=== PATIENT | female | born 1995 | race Caucasian/White ===

== ENCOUNTER 2021-11-01 20:42 | Emergency (ER) | payer BC, OTHER ==
[2021-11-01] MEDS ORDERED: Sodium Chloride 0.9% 1000 ML 1,000 ML IV STA (21:55)
[2021-11-01] MEDS ORDERED: Zofran 4 MG/2 ML VIAL IV ONE (21:56)
--- NOTE | 2021-11-01 22:06 | ERPHSYRPT ---
- History of Present Illness Source: patient Exam Limitations: no limitations Patient Subjective Stated Complaint: "I have COVID and now I'm vomiting and having a lot of diarrhea." Triage Nursing Assessment: Patient reported that she was COVID positive on 10/25/21. Since then she has faired well despite respiratory symptoms. This morning 11/01/21 she develope nausea/vomiting/diarrhea roughly 6 episodes throghout the day. She denied chest pain or worsening shortness of breath. She reported a mild headache that began after episodes of vomiting. Symmetrical chest expansion. heart tones S1/S2 RRR. Lungs vesicular with adequate airflow and no adventitious lung sounds. [place] obese non-distended, non-surgical, and without peritoneal signs. Bowel sounds present in all quadrants. No voluntary/involuntary guarding. No rebound. Physician History: 26 yo wf w +CV19 test on 10/25/21 presents w N/V x 2-3 days. Pt has had GUERRERO/cough/coryza/myalgis/arthralgias. Timing/Duration: other (10/25/21) Activities at Onset: rest Severity of Dyspnea-Max: mild Severity of Dyspnea-Current: mild Possible Cause: no prior episodes Modifying Factors: Improves With: coughing Associated Symptoms: cough, fever, loss of appetite Allergies/Adverse Reactions: No Known Drug Allergies Allergy (Unverified 11/01/21 20:55) Home Medications: Escitalopram Oxalate 20 mg PO DAILY 11/01/21 [History] Metformin HCl 500 mg [Glucophage 500 MG] 1,000 mg PO DAILY 11/01/21 [History] Hx Tetanus, Diphtheria Vaccination/Date Given: Yes Hx Influenza Vaccination/Date Given: Yes Travel Risk - International Travel Have you traveled outside of the country in past 3 weeks: No - Coronavirus Screening Are you exhibiting any of the following symptoms?: No Close contact with a COVID-19 positive Pt in past 14-21 Days: No - Vaccine Status Have you recieved a Covid-19 vaccination: No - Review of Systems Constitutional: No Symptoms, Fever, Chills Eyes: No Symptoms Ears, Nose, & Throat: No Symptoms, Nose Pain, Nose Congestion, Nose Discharge Respiratory: No Symptoms, Cough, Dyspnea Cardiac: No Symptoms Abdominal/Gastrointestinal: Nausea, Vomiting, Diarrhea Genitourinary Symptoms: No Symptoms Musculoskeletal: No Symptoms, Arthralgias, Myalgias Skin: No Symptoms Neurological: No Symptoms, Headache Psychological: No Symptoms Endocrine: No Symptoms Hematologic/Lymphatic: No Symptoms Immunological/Allergic: No Symptoms - Past Medical History Pertinent Past Medical History: Yes Neurological History: No Pertinent History ENT History: No Pertinent History Cardiac History: No Pertinent History Respiratory History: No Pertinent History Endocrine Medical History: No Pertinent History Musculoskeletal History: No Pertinent History GI Medical History: No Pertinent History History: No Pertinent History Psycho-Social History: Anxiety, Depression Female Reproductive Disorders: Other Other Medical History: PCOS - Past Surgical History Past Surgical History: Yes Cardiac: No Pertinent History Respiratory: No Pertinent History Gastrointestinal: Appendectomy, Cholecystectomy Genitourinary: No Pertinent History Musculoskeletal: No Pertinent History Female Surgical History: No Pertinent History - Social History Smoking Status: Never smoker Exposure to second hand smoke: No Drug Use: none Patient Lives Alone: No Significant Family History: no pertinent family hx - Female History Hx Last Menstrual Period: 10/06/21 Hx Now: No - Nursing Vital Signs Nursing Vital Signs: Initial Vital Signs Temperature 98.7 F 11/01/21 20:44 Pulse Rate 67 11/01/21 20:44 Respiratory Rate 22 11/01/21 20:44 Blood Pressure 122/65 11/01/21 20:44 O2 Sat by Pulse Oximetry 98 11/01/21 20:44 Pain Scale Pain Intensity 4 WNL - Physical Exam General Appearance: no apparent distress Eye Exam: PERRL/EOMI, eyes nml inspection Ears, Nose, Throat Exam: hearing grossly normal, normal ENT inspection, normal pharynx Neck Exam: normal inspection, non-tender, supple, full range of motion, No Brudzinski, No Kernig's, No meningismus, No carotid bruit Respiratory Exam: normal breath sounds, lungs clear, airway intact Cardiovascular/Chest Exam: normal heart sounds, regular rate/rhythm, normal peripheral pulses, No murmur, No edema Abdominal/Gastrointestinal Exam: soft, normal bowel sounds, No tenderness Extremity Exam: non-tender, normal range of motion, normal inspection, normal capillary refill Peripheral Pulses Exam: carotid (R): 2+, carotid (L): 2+ Neurologic Exam: alert, oriented x 3, cooperative, rn recovery II-XII nml as tested, normal mood/affect, nml cerebellar function, nml station & gait, sensation nml, No motor deficits, No sensory deficit Skin Exam: normal color, warm, dry Lymphatic Exam: inguinal node tender (L), No adenopathy SpO2 Interpretation: normal SpO2: 98 O2 Delivery: Room Air - Course Nursing assessment & vital signs reviewed: Yes Ordered Tests: Active Orders 24 hr Category Date Time Status HCG,QUALITATIVE URINE Stat Lab 11/01/21 22:28 Completed UA W/RFX UR CULTURE Stat Lab 11/01/21 22:28 Completed Medication Summary Discontinued Medications Generic Name Dose Route Start Last Admin Trade Name Freq PRN Reason Stop Dose Admin Sodium Chloride 1,000 mls @ 999 mls/hr 11/01/21 21:55 11/01/21 22:18 Sodium Chloride 0.9% 1000 Ml IV 11/01/21 22:55 999 mls/hr .Q1H1M STA Administration Sodium Chloride Confirm 11/01/21 22:17 Sodium Chloride 0.9% 1000 Ml Administered 11/01/21 22:18 Dose 1,000 mls @ ud .ROUTE .STK-MED ONE Ondansetron HCl 4 mg 11/01/21 21:56 11/01/21 22:30 Ondansetron Hcl 4 Mg/2 Ml Vial IV 11/01/21 21:57 4 mg STAT ONE Administration Ondansetron HCl Confirm 11/01/21 22:17 Ondansetron Hcl 4 Mg/2 Ml Vial Administered 11/01/21 22:18 Dose 4 mg .ROUTE .STK-MED ONE Lab/Rad Data: Laboratory Results 11/01/21 11/01/21 Range/Units 22:28 22:28 Urine Color YELLOW (YELLOW) Urine Appearance CLEAR (CLEAR) Urine pH 8.0 (5-6) Ur Specific [place] 1.021 (1.005-1.025) Urine Protein NEGATIVE (Negative) Urine Ketones NEGATIVE (NEGATIVE) Urine Blood NEGATIVE (0-5) Jarrett/ul Urine Nitrite NEGATIVE (NEGATIVE) Urine Bilirubin NEGATIVE (NEGATIVE) Urine Urobilinogen NEGATIVE (0-1) mg/dL Ur Leukocyte Esterase NEGATIVE (NEGATIVE) Urine WBC (Auto) NONE (0-5) /HPF Urine RBC (Auto) NONE (0-2) /HPF U Epithel Cells (Auto) RARE (FEW) /HPF Urine Bacteria (Auto) NONE (NEGATIVE) /HPF Urine Mucus (Auto) SLIGHT (NEGATIVE) /HPF Urine Culture Reflexed NO (NO) Urine Glucose NEGATIVE (NEGATIVE) mg/dL Urine HCG, Qual NEGATIVE (Negative) - Progress Progress: improved Progress Note: 11/01/21 23:40 1L NS bolus/4mg IV Zofran w improvement Counseled pt/family regarding: lab results, diagnosis, need for follow-up - Departure Departure Disposition: Home Clinical Impression: COVID-19 Condition: Stable Critical Care Time: No Referrals: DOCTOR,NO FAMILY [Primary Care Provider] - Follow up/PCP as directed Instructions: Coronavirus Disease 2019 (COVID-19) (DC) Additional Instructions: Fluids Zofran for nausea/vomiting Follow up with your family MD Return to ER as needed Prescriptions: ondansetron HCL [Zofran] 4 mg SL Q6HPRN PRN #10 tablet PRN Reason: Nausea/Vomiting
[2021-11-01] MEDS ORDERED: Zofran 4 MG/2 ML VIAL ONE (22:17)
[2021-11-01] MEDS ORDERED: Sodium Chloride 0.9% 1000 ML 1,000 ML ONE (22:17)
[2021-11-01 23:14] LABS: Appearance CLEAR (CLEAR); Bilirubin NEGATIVE (NEGATIVE); Blood NEGATIVE Ery/ul (0-5); Epithelial Cells RARE /HPF (FEW); Glucose NEGATIVE (NEGATIVE); Ketones NEGATIVE (NEGATIVE); Leukocyte Esterase NEGATIVE (NEGATIVE); Mucus SLIGHT /HPF (NEGATIVE); Nitrite NEGATIVE (NEGATIVE); Protein,Urine Dip NEGATIVE (Negative); Specific Gravity 1.021 (1.005-1.025); Urobilinogen NEGATIVE mg/dL (0-1)
[2021-11-02 00:44] VITALS: BP 102/67; PULSE 65
[2021-11-02 01:18] VITALS: O2SAT 98
== END 2021-11-02 00:40 | disposition home or self-care (01) ==
LOC: ED 20:42
DX: U07.1 COVID-19 (principal); R11.2 Nausea with vomiting, unspecified; R51.9 Headache, unspecified; R05.9 Cough, unspecified; M79.10 Myalgia, unspecified site; E28.2 Polycystic ovarian syndrome; Z79.84 Long term (current) use of oral hypoglycemic drugs
CPT/HCPCS: 81001; 84703; 96374; 99284; J2405

== ENCOUNTER 2022-10-04 17:30 | Observation (INO) | payer BC, MEDICAID ==
[2022-10-04 18:15] LABS: Epithelial Cells RARE /HPF (FEW); Mucus SLIGHT /HPF (NEGATIVE); WBC 0-2 /HPF (0-5)
[2022-10-04 18:22] LABS: Appearance CLEAR (CLEAR); Bilirubin NEGATIVE (NEGATIVE); Dipstick done @ ? MAIN LAB; Glucose NEGATIVE (NEGATIVE); Ketones NEGATIVE (NEGATIVE); Nitrite NEGATIVE (NEGATIVE); Protein,Urine Dip NEGATIVE (Negative); RBC NEGATIVE Ery/ul (0-5); Specific Gravity <=1.005 (1.005-1.025); Urobilinogen 0.2 mg/dL (0-1)
[2022-10-04 18:27] LABS: Amphetamine,Urine NEGATIVE (NEGATIVE); Barbiturate,Urine NEGATIVE (NEGATIVE); Benzodiazepine,Urine NEGATIVE (NEGATIVE); Cocaine,Urine NEGATIVE (NEGATIVE); Methadone,Urine NEGATIVE (NEGATIVE); Opiate,Urine NEGATIVE (NEGATIVE); PCP,Urine NEGATIVE (NEGATIVE); THC,Urine NEGATIVE (NEGATIVE)
[2022-10-04 18:28] VITALS: BP 107/57
[2022-10-04 18:30] LABS: Urine Cultured Indicated? NO
== END 2022-10-04 18:45 | disposition home or self-care (01) ==
LOC: OB 17:30
PROVIDERS: ADMIT Obstetrics & Gynecology; ATTEND Obstetrics & Gynecology
DX: Z34.83 Encounter for supervision of other normal pregnancy, third trimester (principal); Z3A.36 36 weeks gestation of pregnancy
CPT/HCPCS: 80307; 81015; 99213; G0378

== ENCOUNTER 2024-10-07 06:40 | Emergency (ER) | payer BC, MEDICAID ==
[2024-10-07 07:03] VITALS: TEMP 97.8
[2024-10-07] MEDS ORDERED: Zofran 4 MG/2 ML VIAL ONE (08:04)
[2024-10-07] MEDS: Zofran 4 MG/2 ML VIAL IV ONE (08:04)
[2024-10-07] MEDS: Sodium Chloride 0.9% 1000 ML 1,000 ML IV STA (08:04)
[2024-10-07] MEDS ORDERED: Sodium Chloride 0.9% 1000 ML 1,000 ML ONE (08:04)
[2024-10-07 08:12] LABS: Absolute Neutrophil Ct (ANC) 10.41 x10^3/uL (1.56-6.13); BASOPHIL % 0.2 % (0.1-1.2); Basophil (Absolute #) 0.02 x10^3/uL (0.01-0.08); Eosinophil % 0.1 % (0.7-5.8); Eosinophil (Absolute #) 0.01 x10^3/uL (0.04-0.36); Hematocrit 41.8 % (34.1-44.9); Hemoglobin 13.9 g/dL (11.2-15.7); IMMATURE GRAN # 0.04 x10^3u/L (0.001-0.031); IMMATURE GRAN % 0.3 % (0.001-0.429); Lymphocyte (Absolute #) 0.63 x10^3/uL (1.18-3.74); Lymphocytes % 5.5 % (19.3-51.7); Mean Corpuscular Hemoglobin 28.6 pg (25.6-32.2); Mean Corpuscular Hgb Concent. 33.3 g/dL (32.2-35.5); Mean Platelet Volume 10.3 fL (9.4-12.3); Monocyte (Absolute #) 0.36 x10^3/uL (0.24-0.86); Monocytes % 3.1 % (4.7-12.5); Neutrophil % 90.8 % (34.0-71.1); Platelet Count 259 x10^3/uL (182-369); Red Blood Count 4.86 x10^6/uL (3.93-5.22); Red Cell Distribution Width 13.1 % (11.7-14.4); White Blood Count 11.5 x10^3/uL (3.98-10.04)
--- NOTE | 2024-10-07 08:23 | ERPHSYRPT ---
- History of Present Illness Time Seen by Provider: 10/07/24 07:30 Source: patient Exam Limitations: no limitations Patient Subjective Stated Complaint: pt states that she has been vomiting and diarrhea for since midnight Triage Nursing Assessment: pt ambulated into the er; pt is axo x4; c/o vomiting; c/o N/V/D; pt denies abd pain; skin PDW; no respiratory distress present; vitals wnl Physician History: 29-year-old female presents to our ED for evaluation of nausea vomiting diarrhea since midnight. Patient with similar symptoms. Patient denies pain. No trauma no fever. Emesis is nonbloody nonbilious. Positive sick contacts. Patient otherwise feels well. No significant past medical history. at bedside. They voiced no other complaints or concerns at this time. Portions of this note were created with voice recognition technology. There may be grammatical, spelling, punctuation or sound alike errors Timing/Duration: today Severity: moderate Modifying Factors: Improves With: nothing Associated Symptoms: denies symptoms Allergies/Adverse Reactions: No Known Drug Allergies Allergy (Verified 10/07/24 06:47) Home Medications: Escitalopram Oxalate 20 mg PO DAILY 11/01/21 [History] Metformin HCl 500 mg [Glucophage 500 MG] 1,000 mg PO BIDWM 10/07/24 [History] Omeprazole 80 mg PO BID 10/07/24 [History] Sucralfate 1 gm [Carafate 1 GM] 1 gr PO QID 10/07/24 [History] Hx Tetanus, Diphtheria Vaccination/Date Given: Yes Hx Influenza Vaccination/Date Given: Yes Hx Pneumococcal Vaccination/Date Given: No Travel Risk - International Travel Have you traveled outside of the country in past 3 weeks: No - Emerging Infectious Disease Are you exhibiting symptoms associated with any current EIDs: Yes Symptoms: Diarrhea, Vomitting - Review of Systems Constitutional: No Symptoms, No Fever, No Chills Eyes: No Symptoms Ears, Nose, & Throat: No Symptoms Respiratory: No Symptoms, No Cough, No Dyspnea Cardiac: No Symptoms, No Chest Pain, No Edema, No Syncope Abdominal/Gastrointestinal: No Symptoms, No Abdominal Pain, No Nausea, No Vomiting, No Diarrhea Genitourinary Symptoms: No Symptoms, No Dysuria Musculoskeletal: No Symptoms, No Back Pain, No Neck Pain Skin: No Symptoms, No Rash Neurological: No Symptoms, No Dizziness, No Focal Weakness, No Sensory Changes Psychological: No Symptoms Endocrine: No Symptoms Hematologic/Lymphatic: No Symptoms Immunological/Allergic: No Symptoms All Other Systems: Reviewed and Negative - Past Medical History Pertinent Past Medical History: Yes Neurological History: No Pertinent History ENT History: No Pertinent History Cardiac History: No Pertinent History Respiratory History: Asthma Endocrine Medical History: No Pertinent History Musculoskeletal History: No Pertinent History GI Medical History: No Pertinent History History: No Pertinent History Psycho-Social History: Anxiety, Depression Female Reproductive Disorders: Other Other Medical History: PCOS - Past Surgical History Past Surgical History: Yes Cardiac: No Pertinent History Respiratory: No Pertinent History Gastrointestinal: Appendectomy, Cholecystectomy Genitourinary: No Pertinent History Musculoskeletal: No Pertinent History Female Surgical History: No Pertinent History Significant Family History: no pertinent family hx - Female History Hx Last Menstrual Period: 09/08/24 Hx Now: No - Social History Smoking Status: Light tobacco smoker Exposure to second hand smoke: No Drug Use: none Patient Lives Alone: No - Social Determinants of Health Will the patient participate in the screening: Yes Do you worry about a steady place to live?: No Do you have any problems with any of the following?: No known problems In the past 12 months,have you had to go without utilities?: No Transportation Issues: No Has anyone in your support network made you feel unsafe?: No Have you or anyone in your house had to go without enough: No - Nursing Vital Signs Nursing Vital Signs: Initial Vital Signs Temperature 97.8 F 10/07/24 06:49 Pulse Rate 84 10/07/24 06:49 Respiratory Rate 18 10/07/24 06:49 Blood Pressure 119/67 10/07/24 06:49 O2 Sat by Pulse Oximetry 97 10/07/24 06:49 Pain Scale Pain Intensity 0 - Physical Exam General Appearance: no apparent distress, alert Eye Exam: PERRL/EOMI, eyes nml inspection Ears, Nose, Throat Exam: normal ENT inspection, TMs normal, pharynx normal, m oist mucous membranes Neck Exam: normal inspection, non-tender, supple, full range of motion Respiratory Exam: normal breath sounds, lungs clear, airway intact, No respiratory distress Cardiovascular Exam: regular rate/rhythm, normal heart sounds, normal peripheral pulses Gastrointestinal/Abdomen Exam: soft, normal bowel sounds, No tenderness, No mass Back Exam: normal inspection, normal range of motion, No CVA tenderness, No vertebral tenderness Extremity Exam: normal inspection, normal range of motion, pelvis stable Neurologic Exam: alert, oriented x 3, cooperative, normal mood/affect, sensation nml, No motor deficits Skin Exam: normal color, warm, dry, No rash Lymphatic Exam: No adenopathy SpO2 Interpretation: normal SpO2: 96 O2 Delivery: Room Air - Course Nursing assessment & vital signs reviewed: Yes Ordered Tests: Active Orders 24 hr Category Date Time Status IV Insertion STAT Care 10/07/24 07:45 Active CBC W DIFF Stat Lab 10/07/24 07:56 Completed CMP Stat Lab 10/07/24 07:56 Completed UA W/RFX UR CULTURE Stat Lab 10/07/24 07:45 Ordered Medication Summary Discontinued Medications Generic Name Dose Route Start Last Admin Trade Name Freq PRN Reason Stop Dose Admin Sodium Chloride 1,000 mls @ 999 mls/hr 10/07/24 07:45 10/07/24 09:11 Sodium Chloride 0.9% 1000 Ml IV 10/07/24 08:45 Infused .Q1H1M STA Infusion Sodium Chloride Confirm 10/07/24 08:04 Sodium Chloride 0.9% 1000 Ml Administered 10/07/24 08:05 Dose 1,000 mls @ ud .ROUTE .STK-MED ONE Ondansetron HCl 4 mg 10/07/24 07:46 10/07/24 08:04 Ondansetron Hcl 4 Mg/2 Ml Vial IV 10/07/24 07:47 4 mg STAT ONE Administration Ondansetron HCl Confirm 10/07/24 08:04 Ondansetron Hcl 4 Mg/2 Ml Vial Administered 10/07/24 08:05 Dose 4 mg .ROUTE .STK-MED ONE Lab/Rad Data: Laboratory Result Diagrams 10/07/24 07:56 10/07/24 07:56 Laboratory Results 10/07/24 10/07/24 Range/Units 07:56 07:56 WBC 11.5 H (3.98-10.04) x10^3/uL RBC 4.86 (3.93-5.22) x10^6/uL Hgb 13.9 (11.2-15.7) g/dL Hct 41.8 (34.1-44.9) % MCV 86.0 (79.4-94.8) fL MCH 28.6 (25.6-32.2) pg MCHC 33.3 (32.2-35.5) g/dL RDW 13.1 (11.7-14.4) % Plt Count 259 (182-369) x10^3/uL MPV 10.3 (9.4-12.3) fL Gran % 90.8 H (34.0-71.1) % Immature Gran % (Auto) 0.3 (0.001-0.429) % Nucleat RBC Rel Count 0.0 (0.00-0.2) % Eos # (Auto) 0.01 L (0.04-0.36) x10^3/uL Immature Gran # (Auto) 0.04 H (0.001-0.031) x10^3u/L Absolute Lymphs (auto) 0.63 L (1.18-3.74) x10^3/uL Absolute Monos (auto) 0.36 (0.24-0.86) x10^3/uL Absolute Nucleated RBC 0.00 (0.00-0.012) x10^3u/L Lymphocytes % 5.5 L (19.3-51.7) % Monocytes % 3.1 L (4.7-12.5) % Eosinophils % 0.1 L (0.7-5.8) % Basophils % 0.2 (0.1-1.2) % Absolute Granulocytes 10.41 H (1.56-6.13) x10^3/uL Basophils # 0.02 (0.01-0.08) x10^3/uL Sodium 138 (135-145) mmol/L Potassium 4.1 (3.5-5.1) mmol/L Chloride 103 (98-107) mmol/L Carbon Dioxide 26 (22-30) mmol/L Anion Gap 13.9 (5-15) MEQ/L BUN 19 H (7-17) mg/dL Creatinine 0.92 (0.52-1.04) mg/dL Estimated GFR 87.0 ML/MIN Glucose 122 H (74-106) mg/dL Calcium 8.9 (8.4-10.2) mg/dL Total Bilirubin 0.90 (0.2-1.3) mg/dL AST 33 (14-36) U/L ALT 36 H (0-35) U/L Alkaline Phosphatase 58 (38-126) U/L Serum Total Protein 7.3 (6.3-8.2) g/dL Albumin 4.5 (3.5-5.0) g/dL - Progress Progress: improved Progress Note: Patient reassessed. She feels well. Workup reveals dehydration. Patient celia erating p.o. IV fluids infused. Symptoms resolved. Zofran administered for nausea. Patient reassessed. Patient states she is ready for discharge. Vital stable. A prescription for Zofran forwarded to patient's pharmacy. Patient consulted on bowel rest for the next 2 to 3 days. Patient to avoid heavy greasy spicy foods. Clear liquids fluids with electrolytes and soups are okay and moderate portions. Patient agrees to follow-up with her primary care doctor within 48 hours for reevaluation. Significant other at bedside. They voiced no other complaints at this time. A prescription for Zofran forwarded to patient's pharmacy. Portions of this note were created with voice recognition technology. There may be grammatical, spelling, punctuation or sound alike errors Complexity of problem addressed is moderate acute complicated. No critical care time. Complex of data reviewed and analyzed is moderate. Test ordered chest reviewed results analyzed and correlated clinically with history and physical exam. Risk of complication and or risk of morbidity/mortality of patient m anagement is moderate. A prescription for Zofran forwarded to patient's pharmacy. Vital stable. Time spent to discharge patient is approximately 20 minutes. Plan of care established for shared decision making. No social determinants of health present to impede follow-up. Portions of this note were created with voice recognition technology. There may be grammatical, spelling, punctuation or sound alike errors 10/07/24 09:16 Counseled pt/family regarding: lab results, diagnosis, need for follow-up - Departure Departure Disposition: Home Clinical Impression: Nausea vomiting and diarrhea, Dehydration Condition: Stable Critical Care Time: No Referrals: CECILLE YBARRA [employer] [Primary Care Provider] - Follow up/PCP as directed Additional Instructions: Discharge/Care Plan BIPIN LECHUGA was seen on 10/07/24 in the Emergency Room. The patient was counseled regarding Diagnosis,Lab results, Imaging studies, need for follow up and when to return to the Emergency Room. Prescriptions given: Discharge Note I have spoken with the patient and/or caregivers. I have explained the patient's condition, diagnosis and treatment plan based on the information available to me at this time. I have answered the patient's and/or caregiver's questions and addressed any concerns. The patient and/or caregivers have as good understanding of the patient's diagnosis, condition and treatment plan as can be expected at this point. The vital signs have been stable. The patient's condition is stable and appropriate for discharge from the emergency department. The patient will pursue further outpatient evaluation with the primary care physician or other designated or consulting physician as outlined in the discharge instructions. The patient and/or caregivers are agreeable to this plan of care and follow-up instructions have been explained in detail. The patient and/or caregivers have received these instruction. The patient/and or caregivers are aware that any significant change in condition or worsening of symptoms should prompt an immediate return to this or the closest emergency department or call 911. Prescriptions: Ondansetron ODT 4 MG [Zofran Odt 4 mg] 4 mg PO Q6H PRN PRN #10 tablet PRN Reason: Vomiting
[2024-10-07 08:24] LABS: ALBUMIN 4.5 g/dL (3.5-5.0); ANION GAP 13.9 MEQ/L (5-15); BILIRUBIN,TOTAL 0.9 mg/dL (0.2-1.3); Calcium 8.9 mg/dL (8.4-10.2); Creatinine 1 0.92 mg/dL (0.52-1.04); Potassium 4.1 mmol/L (3.5-5.1); Total Protein 7.3 g/dL (6.3-8.2)
[2024-10-07 09:57] VITALS: BP 115/80; PULSE 98; RESP 17; O2SAT 99
== END 2024-10-07 10:02 | disposition home or self-care (01) ==
LOC: ED 06:40
DX: R11.2 Nausea with vomiting, unspecified (principal); R19.7 Diarrhea, unspecified; E86.0 Dehydration
CPT/HCPCS: 36415; 80053; 85025; 96374; 99284; J2405